=== PATIENT | female | born 2000 | race Caucasian/White ===

== ENCOUNTER → 2021-11-21 07:54 | Outpatient (BNVA) | payer OTHER, MEDICAID, SELFPAY | PROVIDERS: PCP Family Medicine; Visit Provider Nurse Practitioner Women's Health | DX: N92.6 Irregular menstruation, unspecified (principal) | CPT/HCPCS: 81025; 84702 ==

== ENCOUNTER → 2021-11-25 11:54 | Outpatient (BNVA) | payer OTHER, MEDICAID, SELFPAY | PROVIDERS: PCP Family Medicine; Visit Provider Obstetrics & Gynecology | DX: O20.9 Hemorrhage in early pregnancy, unspecified (principal) | CPT/HCPCS: 84702; 86850; 86900 ==

== ENCOUNTER 2021-11-29 07:51 | Outpatient (CLI) | payer OTHER, BC, SELFPAY | END 2021-11-29 07:52 | disposition home or self-care (01) | PROVIDERS: PCP Family Medicine; Visit Provider Obstetrics & Gynecology | DX: O20.0 Threatened abortion (principal) | CPT/HCPCS: 36415; 84702 ==

== ENCOUNTER → 2021-12-17 10:38 | Outpatient (BNVA) | payer BC, MEDICAID, SELFPAY | PROVIDERS: PCP Family Medicine; Visit Provider Obstetrics & Gynecology | DX: O03.9 Complete or unspecified spontaneous abortion without complication (principal); Z12.4 Encounter for screening for malignant neoplasm of cervix | CPT/HCPCS: 84702; 88175 ==

== ENCOUNTER → 2022-05-28 10:15 | Outpatient (BNVA) | payer BC, MEDICAID, SELFPAY | PROVIDERS: PCP Family Medicine; Visit Provider Nurse Practitioner Women's Health | DX: N92.6 Irregular menstruation, unspecified (principal); O21.9 Vomiting of pregnancy, unspecified | CPT/HCPCS: 81025 ==

== ENCOUNTER → 2022-06-06 07:48 | Outpatient (BNVA) | payer BC, MEDICAID, SELFPAY | PROVIDERS: PCP Family Medicine; Visit Provider Obstetrics & Gynecology | DX: Z36.87 Encounter for antenatal screening for uncertain dates (principal) | CPT/HCPCS: 76817 ==

== ENCOUNTER → 2022-06-10 14:08 | Outpatient (BNVA) | payer BC, MEDICAID, SELFPAY | PROVIDERS: PCP Family Medicine; Visit Provider Obstetrics & Gynecology | DX: Z36.9 Encounter for antenatal screening, unspecified (principal) | CPT/HCPCS: 76817; 80307; 81000; 85027; 86592; 86762; 86803; 86850; 86900; 87086; 87340; 87806 ==

== ENCOUNTER → 2022-06-23 14:14 | Outpatient (BNVA) | payer BC, MEDICAID, SELFPAY | PROVIDERS: PCP Family Medicine; Visit Provider Obstetrics & Gynecology | DX: R39.9 Unspecified symptoms and signs involving the genitourinary system (principal) | CPT/HCPCS: 81000; 87086 ==

== ENCOUNTER 2022-07-08 10:13 | Outpatient (CLI) | payer BC, MEDICAID, SELFPAY ==
[2023-05-14 13:28] LABS: Miscellaneous Test See Scanned Lab Rpt
== END 2022-07-08 10:14 | disposition home or self-care (01) ==
LOC: LAB 10:17
PROVIDERS: PCP Family Medicine; Visit Provider Obstetrics & Gynecology
DX: Z34.90 Encounter for supervision of normal pregnancy, unspecified, unspecified trimester (principal)
CPT/HCPCS: 81000; 87491; 87591

== ENCOUNTER → 2022-09-09 09:38 | Outpatient (BNVA) | payer BC, MEDICAID, SELFPAY | PROVIDERS: PCP Family Medicine; Visit Provider Obstetrics & Gynecology | DX: Z34.90 Encounter for supervision of normal pregnancy, unspecified, unspecified trimester (principal) | CPT/HCPCS: 81000 ==

== ENCOUNTER → 2022-09-23 13:20 | Outpatient (BNVA) | payer BC, MEDICAID, SELFPAY | PROVIDERS: PCP Family Medicine; Visit Provider Nurse Practitioner Women's Health | DX: Z34.90 Encounter for supervision of normal pregnancy, unspecified, unspecified trimester (principal) | CPT/HCPCS: 81000 ==

== ENCOUNTER → 2022-09-29 10:41 | Outpatient (BNVA) | payer BC, MEDICAID, SELFPAY | PROVIDERS: PCP Family Medicine; Visit Provider Nurse Practitioner Women's Health | DX: Z34.90 Encounter for supervision of normal pregnancy, unspecified, unspecified trimester (principal) | CPT/HCPCS: 82950 ==

== ENCOUNTER → 2022-10-17 09:00 | Outpatient (BNVA) | payer BC, MEDICAID, SELFPAY | PROVIDERS: PCP Family Medicine; Visit Provider Obstetrics & Gynecology | DX: Z34.90 Encounter for supervision of normal pregnancy, unspecified, unspecified trimester (principal) | CPT/HCPCS: 81000; 85027 ==

== ENCOUNTER → 2022-10-31 09:48 | Outpatient (BNVA) | payer BC, MEDICAID, SELFPAY | PROVIDERS: PCP Family Medicine; Visit Provider Nurse Practitioner Women's Health | DX: Z34.90 Encounter for supervision of normal pregnancy, unspecified, unspecified trimester (principal) | CPT/HCPCS: 81000 ==

== ENCOUNTER → 2022-11-14 07:56 | Outpatient (BNVA) | payer BC, MEDICAID, SELFPAY | PROVIDERS: PCP Family Medicine; Visit Provider Obstetrics & Gynecology | DX: Z34.90 Encounter for supervision of normal pregnancy, unspecified, unspecified trimester (principal) | CPT/HCPCS: 81000 ==

== ENCOUNTER → 2022-11-21 10:06 | Outpatient (BNVA) | payer BC, MEDICAID, SELFPAY | PROVIDERS: PCP Family Medicine; Visit Provider Nurse Practitioner Women's Health | DX: Z34.90 Encounter for supervision of normal pregnancy, unspecified, unspecified trimester (principal); L65.9 Nonscarring hair loss, unspecified | CPT/HCPCS: 81000; 84443 ==

== ENCOUNTER 2022-11-26 15:15 | Outpatient (CLI) | payer BC, MEDICAID, SELFPAY ==
[2022-11-26 16:56] LABS: Ferritin 16 ng/mL (15-150); Magnesium 1.6 mg/dL (1.7-2.3)
[2022-12-01 14:34] LABS: Vit D 1,25 (Oh)2, Total 170 pg/mL (18-72); Vit D2 1,25 (Oh)2 <8 pg/mL; Vit D3 1,25 (Oh)2 170 pg/mL
[2022-12-03 16:44] LABS: Zinc Level, Serum or Plasma 56 mcg/dL (60-130)
== END 2022-11-26 15:16 | disposition home or self-care (01) ==
LOC: LAB 15:18
PROVIDERS: PCP Family Medicine; Visit Provider Nurse Practitioner Family
DX: L65.0 Telogen effluvium (principal)
CPT/HCPCS: 36415; 82652; 82728; 83735; 84630

== ENCOUNTER → 2022-12-08 14:29 | Outpatient (BNVA) | payer BC, MEDICAID, SELFPAY | PROVIDERS: PCP Family Medicine; Visit Provider Obstetrics & Gynecology | DX: Z34.90 Encounter for supervision of normal pregnancy, unspecified, unspecified trimester (principal) | CPT/HCPCS: 81000; 87081 ==

== ENCOUNTER → 2022-12-15 10:13 | Outpatient (BNVA) | payer BC, MEDICAID, SELFPAY | PROVIDERS: PCP Family Medicine; Visit Provider Obstetrics & Gynecology | DX: Z34.90 Encounter for supervision of normal pregnancy, unspecified, unspecified trimester (principal) | CPT/HCPCS: 81000; 87086 ==

== ENCOUNTER → 2022-12-22 11:20 | Outpatient (BNVA) | payer BC, MEDICAID, SELFPAY | PROVIDERS: PCP Family Medicine; Visit Provider Obstetrics & Gynecology | DX: Z34.90 Encounter for supervision of normal pregnancy, unspecified, unspecified trimester (principal) | CPT/HCPCS: 81000 ==

== ENCOUNTER 2022-12-28 21:42 | Emergency (ER) | payer BC, MEDICAID, SELFPAY ==
[2022-12-28 21:48] VITALS: BP 132/89; PULSE 57; RESP 16; TEMP 36.8; O2SAT 97
--- NOTE | 2022-12-28 21:58 | W.ED.WOUNDLC ---
HPI - Wound/Laceration General: Chief Complaint: Wound/Laceration Stated Complaint: left finger lac Time Seen by Provider: 12/28/22 21:56 History of Present Illness: 22-year-old female comes in today with laceration to the left dorsal hand. Patient reports tetanus is up-to-date. Patient reports about a hour prior to arrival to the ER she was opening a box with a knife when it slipped cutting her to the right dorsal hand between the thumb and index finger. Review of Systems General: Reports: 10 or more systems reviewed and unremarkable except in HPI and below Resp: Denies: dyspnea Musc: Reports: extremity pain Skin/Breast: Reports: new lesions PFSH ED PFSH: Medical History No pertinent past medical history Denies diabetes, asthma, hypertension, seizures, DVT/PE PCP: Dr. Bowden Surgical History No pertinent past surgical history Family History Denies family history of Colon cancer Ovarian cancer Diabetes Heart disease Hypercholesteremia Breast cancer Hypertension Uterine cancer Thyroid disease Stroke Physical Exam Const: COMMON NORMALS: alert HENMT: COMMON NORMALS: normocephalic HEAD & SCALP: normocephalic Neck/C-Spine: COMMON NORMALS: full ROM Resp: COMMON NORMALS: normal respiratory effort Cardio: COMMON NORMALS: regular rate RATE: regular rate Extremity: LEFT UPPER EXTREMITY: Yes hand & digits (2 cm laceration dorsal hand) Left hand and digits: Yes inspection, Yes palpation, Yes ROM, Yes neurovascular exam and Yes tendon exam EXTREMITY IMAGE (FRONT): 1. 2 cm linear laceration Neuro: SENSORIUM/ORIENTATION: Yes alert Skin: TRAUMA: laceration (Left dorsal hand) linear Procedures Laceration Laceration 1: Site: hand Side (If applicable): left Size (cm): 2 Description: linear Depth: simple, single layer Pre-repair: wound explored and irrigated extensively Skin layer closed with: other (Skin adhesive) Course Vital Signs: Vital signs: Vital Signs Temperature 98.3 F 12/28/22 21:48 Pulse Rate 57 L 12/28/22 21:48 Respiratory Rate 16 12/28/22 21:48 Blood Pressure 132/89 12/28/22 21:48 Pulse Oximetry 97 12/28/22 21:48 Oxygen Delivery Me thod Room Air 12/28/22 21:48 MDM - Wound/Laceration Medical Decision Making 22-year-old female comes in today for injury to the left dorsal hand. On exam patient has a 2 cm linear laceration to the left dorsal hand. Wound is well approximated. Patient has normal tendon function and movement of the hand. Differential diagnosis includes not limited to fracture, foreign body, laceration. On exam there is noted no fracture, tendon injury, or foreign body to the wound. Wound was cleaned and approximated and secured with skin adhesive. Patient tolerated well. Dressing was applied postprocedure for protection of the wound. Patient reported understanding of care plan and need for follow-up or return to the ER. Discharge Plan Discharge Patient Disposition: Home Clinical Impression: Laceration of hand, left Qualifiers: Encounter type: initial encounter Foreign body presence: without foreign body Qualified Code(s): S61.412A - Laceration without foreign body of left hand, initial encounter Condition: Stable Prescriptions: No Action ketoconazole 2 % shampoo 1 applic topical ONCE Qty: 120 6RF Rx Instructions: Lather into scalp 2-3 times weekly. Allow to sit on scalp 5 minutes before rinsing clobetasol 0.05 % solution 1 applic topical BID 14 Days Qty: 50 3RF Rx Instructions: Apply a few drops to itchy areas on scalp as needed propranolol 20 mg tablet 20 mg PO BID Qty: 60 1RF prenat.vits,christopher,[id number]-ajqtz Tablet 1 tab PO DAILY Discharge Orders: Discharge ED (Routine); Ordered 12/28/22 Ordered By: Darrin Gloria Referrals: Skip Bowden MD [Primary Care Provider] - Discharge Diet: Usual diet Patient Instructions: Skin Adhesive Care (ED) Activity Restrictions/Additional Instructions: Keep wound clean and dry. Is very important keep the wound as dry as possible for the first 48 hours. This decreases chance of infection and improved healing. After that he can wash gently with mild soap and water. Do not apply ointment to the skin adhesive. Monitor site for signs of infection such as redness, fever, increasing pain. Follow-up with primary care as needed. Return to ED for new concerns. Coding Level of Care Code ED Implementation Advisor for Jose Cartagena
== END 2022-12-28 22:18 | disposition home or self-care (01) ==
PROVIDERS: Emergency Provider Nurse Practitioner Family; PCP Family Medicine
DX: S61.412A Laceration without foreign body of left hand, initial encounter (principal); W26.0XXA Contact with knife, initial encounter
CPT/HCPCS: 12001; 99282

== ENCOUNTER → 2022-12-29 08:22 | Outpatient (BNVA) | payer BC, MEDICAID, SELFPAY | PROVIDERS: PCP Family Medicine; Visit Provider Obstetrics & Gynecology | DX: Z34.90 Encounter for supervision of normal pregnancy, unspecified, unspecified trimester (principal) | CPT/HCPCS: 81000; 87086 ==

== ENCOUNTER → 2023-01-05 12:35 | Outpatient (BNVA) | payer BC, MEDICAID, SELFPAY | PROVIDERS: PCP Family Medicine; Visit Provider Obstetrics & Gynecology | DX: O48.0 Post-term pregnancy (principal) | CPT/HCPCS: 76819; 81000 ==

== ENCOUNTER 2023-01-06 19:07 | Inpatient (IN) | payer BC, MEDICAID, SELFPAY ==
[2023-01-06] VITALS (12 sets, daily range): BP systolic 101–123; BP diastolic 61–84; PULSE 53–68; RESP 16–18; TEMP 36.6; BMI 36.9
[2023-01-06 18:11] LABS: Basophils % 0.4 %; Eosinophils # 0.1 10^3/uL (0.0-0.8); Eosinophils % 0.5 %; Hematocrit 40.6 % (37.0-47.0); Hemoglobin 13.1 g/dL (11.5-15.3); Lymphocytes # 1.9 10^3/uL (0.8-4.8); Lymphocytes % 18.6 %; Mean Corpuscular HGB Conc 32.3 g/dL (30.0-36.0); Mean Corpuscular Hemoglobin 26.9 pg (28.0-34.0); Mean Corpuscular Volume 83.4 fl (81-99); Mean Platelet Volume 13.3 fL (7.4-10.4); Monocytes # 0.8 10^3/uL (0.2-0.9); Monocytes % 7.8 %; Neutrophils # 7.23 10^3/uL (1.8-7.7); Nucleated Red Blood Cells % 0 %; Platelet Count 225 10^3/cmm (130-400); Red Blood Count 4.87 10^6/uL (4.1-5.3)
[2023-01-06] MEDS: miSOPROStol 100 mcg tablet 25 MCG VAGINAL ×2 (18:18→21:55)
[2023-01-07] VITALS (111 sets, daily range): BP systolic 76–141; BP diastolic 50–88; PULSE 52–164; RESP 16–18; TEMP 36.2–36.8; O2SAT 92–99
[2023-01-07] MEDS: miSOPROStol 100 mcg tablet 25 MCG VAGINAL (01:56)
--- NOTE | 2023-01-07 07:00 | PM.OPHPUD ---
Labor & Delivery H&P Update Date of Procedure: January 07, 2023 Date H&P Performed: 01/05/23 H&P update information: I have reviewed H&P completed within last 30 days, I have examined patient prior to procedure and No changes to prior documentation Admission Diagnosis:
[2023-01-07] MEDS: dextrose 5%-lactated ringers 1,000 ML 125 ML IV (10:03)
[2023-01-07] MEDS: fentaNYL 50 mcg/mL INJ 2mL IVP ×2 (10:12→15:09)
[2023-01-07] MEDS: lactated ringers 1,000 ML 999 ML IV ×3 (16:06→20:19)
--- NOTE | 2023-01-07 17:51 | PC.NURSE ---
Pitocin was decreased to half at 1610 due to contraction pattern. Pitocin as of 1751 has not been advanced in dosage from 5 due to not being able to trace maternal contractions.
--- NOTE | 2023-01-07 19:07 | ANES.PREANE2 ---
Pre-Anesthetic Assessment Height/Weight: Height 1.68 m Weight 103.873 kg Temp Pulse Resp BP O2 Del Method 98.2 F 59 L 16 112/71 Room Air 01/07/23 12:14 01/07/23 16:34 01/07/23 17:00 01/07/23 16:34 01/06/23 17:07 Preop Diagnosis: Labor pain MURALI Was Beta Alejandro taken within 24 hours: N/A Was Clonidine taken within 24 hours: N/A Social No alcohol and No tobacco Exam alert, oriented x 3, clear to auscultation bilaterally and regular rate & rhythm Airway Submandibular: within normal limits Cervical ROM: within normal limits Mallampati: Class II Dentition: full History/ROS No significant history except as noted and No significant complaints Pulmonary None reported CV/HEM None reported None reported Hepatic None reported GI None reported Metabolic None reported Musc/skel None reported Neuropsych None reported Anesthetic Plan ASA status: 2 Anesthesia: Regional (specify below) Other: MURALI Risk of > 500 ml blood loss (7ml/kg in children): No Medications/Allergies Home Medications Medication Instructions Recorded Confirmed Last Taken Type clobetasol 0.05 % scalp solution 1 applic topical BID 2 weeks #50 mL 05/06/22 01/05/23 Unknown Rx ketoconazole 2 % shampoo 1 applic topical ONCE #120 mL 05/06/22 01/05/23 Unknown Rx prenat.vits,christopher,ybk-[id number]-sogtm 1 tab PO DAILY 05/28/22 01/05/23 Unknown History propranolol 20 mg tablet 20 mg PO BID #60 tabs 10/31/22 01/05/23 Unknown Rx breast pump #1 ea 01/05/23 01/05/23 Unknown Rx Allergies Allergy/AdvReac Type Severity Reaction Status Date / Time No Known Allergies Allergy Verified 01/05/23 13:50 Current Medications Generic Name Dose Route Start Last Admin Trade Name Freq PRN Reason Stop Dose Admin Fentanyl 25 - 100 mcg 01/06/23 17:58 01/07/23 15:09 Fentanyl 50 Mcg/Ml Inj 2ml IVP 25 mcg Q1H PRN Administration SEVERE PAIN Dextrose/Lactated Ringer's 1,000 mls @ 125 mls/hr 01/06/23 17:58 01/07/23 10:03 Dextrose 5%-Lactated Ringers IV 125 mls/hr .Q8H PRN Administration per label comments Lactated Ringer's 1,000 mls @ 999 mls/hr 01/06/23 19:32 01/07/23 18:58 Lactated Ringers IV 999 mls/hr .Q1H1M PRN Administration Per L&D Rescitation Protocol Oxytocin 30 unit/ Sodium 503 mls @ 1 mls/hr 01/07/23 09:30 01/07/23 16:10 Chloride IV 5 mls/hr .Q24H AYE 5 mls/hr Titration Protocol PFS Anesthesia Medical History No pertinent past medical history Denies diabetes, asthma, hypertension, seizures, DVT/PE PCP: Dr. Bowden Surgical History No pertinent past surgical history Family History Denies family history of Colon cancer Ovarian cancer Diabetes Heart disease Hypercholesteremia Breast cancer Hypertension Uterine cancer Thyroid disease Stroke Female Reproductive History : 2 Data Anesthesia 01/06/23 17:40 Short CBC 01/06/23 Range/Units 17:40 WBC 10.0 (4.0-10.0) 10^3/uL Hgb 13.1 (11.5-15.3) g/dL Hct 40.6 (37.0-47.0) % MCV 83.4 (81-99) fl Plt Count 225 (130-400) 10^3/cmm Neut % (Auto) 72.0 % Neut # (Auto) 7.23 (1.8-7.7) 10^3/uL Cardiac Studies: No Data to Display
--- NOTE | 2023-01-07 19:35 | P.ANES_ITS ---
Anesthesia Procedures Procedure/Date: 01/07/23 Epidural: Time Out Performed: Yes Consents Signed: Procedure Consent Consent: requested by attending/covering physician and from patient Lumbar Level: L2-L3 Epidural position: sitting Epidural procedure: sterile prep of area, 1% lidocaine to numb the area, 18 g needle, neg for paresthesia, test d ose given, 1.5% xylocaine 1:200k epi (5cc neg), 0.2% Ropivacaine bolus ml (4cc with fentanyl 100mcg), placed PCEA, no systemic response, sterile dressing applied, L.U.D. no apparent complications and 0.2% Ropiavacaine @ mls/hr (13cc/hour) Additional Comments: TITA at 9cm. Placed 2cm into space. Pt tolerated well
[2023-01-07] MEDS: ePHEDrine 50 mg/mL Inj 10 MG IVP ×2 (22:00→22:12)
[2023-01-07] MEDS: ondansetron 2 mg/ML SDV 2 mL 4 MG IVP (22:02)
[2023-01-08] VITALS (83 sets, daily range): BP systolic 89–131; BP diastolic 51–82; PULSE 51–103; RESP 16–18; TEMP 36.6–36.9; O2SAT 96
--- NOTE | 2023-01-08 01:24 | PM.DELIVERY ---
Delivery Note: Date of delivery: January 08, 2023 Pre-delivery diagnoses: term , labor induction Post-delivery diagnoses: same, vaginal delivery Procedure: labor induction vaginal delivery Delivering Physician: Naveen Reyes MD Estimated blood loss (mL): 300 Findings: vigorous infant normal placenta and cord cord gases and blood obtained second-degee perineal laceration repaired Delivery: vaginal delivery, no complications Post-Delivery Status: normal History History History 2 Term 0 0 Miscarriages/Ectopic 1 Living Children 0 A&P Assessment and plan (1) Vaginal delivery: Coding Level of Care Code Acute Code for Chg Fwd Diagnoses Vaginal delivery O80 Time Spent (min) 60
--- NOTE | 2023-01-08 01:53 | PC.NURSE ---
This nurse tried to edit titration for Pitocin but it will not allow me to. Patient is on moderate dose pitocin increasing 1 ml every 15 minute at 0115 patients pitocin was increased from 4ml to 5ml then at 0130 increased to 6ml then at 0145 increased to 7ml.
[2023-01-08] MEDS: dextrose 5%-lactated ringers 1,000 ML 125 ML IV ×2 (04:29→13:30)
--- NOTE | 2023-01-08 08:12 | PC.NURSE ---
Pt c/o lots of pain with catheter even after pushing bulb back. Discussed options, pt opted to remove esteves and do straight cath every 2-4 hours for bladder emptying. Catheter removed.
--- NOTE | 2023-01-08 11:08 | PM.OBGYPN ---
RELIGIOUS EDUCATION COORDINATOR Subjective Subjective: Interval history: patient comfortable with epidural heart tracing by external monitor: good [id number] variability pitocin at 20 mU Cx: 4 cm / -2 AROM - small amount of blood fluid IUPC placed Labor: Station: -3 Amniotic Membrane Status: Bulging Monitor Mode: Palpation Contraction Pattern: Irregular Status: Category I Vitals/I&O/Wt Last Vital Signs Temp 98.4 F 01/08/23 10:56 Pulse 103 H 01/08/23 10:48 Resp 16 01/08/23 08:15 BP 103/67 01/08/23 10:48 Pulse Ox 98 01/07/23 19:29 O2 Del Method Room Air 01/06/23 17:07 01/07/23 01/08/23 01/08/23 22:59 06:59 14:59 Intake Total 4077.900 / 4095.900 100.10 / 4196.000 Output Total 100 / 100 350 / 450 200 / 200 Balance 3977.900 / 3995.900 -249.90 / 3746.000 -200 / -200 Weight last 48 hrs Weight 229 lb Physical Exam Urinary Catheter Management: [place]: Cath Placed During This Visit: yes, but has since been removed by the nurse Reason for Continuing Indwelling Catheter: Decision to DC Catheter Urinary Catheter Date of Insertion: 01/07/23 Urinary Catheter Time of Insertion: 20:10 Date Urinary Catheter Removed: 01/08/23 Time Urinary Catheter Discontinued: 08:00 Data 01/06/23 17:40 Attestations Medical Necessity Statement*: patient at 40 w 6 d, undergoing labor induction Coding Level of Care Code Acute Code for Chg Fwd Diagnoses Time Spent (min) 15
[2023-01-08] MEDS: ondansetron 2 mg/ML SDV 2 mL 4 MG IVP ×2 (11:26→15:36)
[2023-01-08] MEDS: lanolin oint 7 gm 1 APPLIC TOPICAL (19:21)
[2023-01-08] MEDS: benzocaine-menthol 78 gm Canister 1 SPRAY TOPICAL (19:21)
[2023-01-08] MEDS: HYDROcodone-acetaminophen 5-325 mg Tablet PO (19:21)
[2023-01-08] MEDS: ibuprofen 800 mg tablet PO (21:11)
--- NOTE | 2023-01-09 01:27 | P.DS_ITS ---
Discharge Providers REAL ESTATE INVESTOR Date of Admission: 01/06/23 19:07 Date of Discharge: 01/09/23 Attending Provider at Admission: Greg Dee MD Attending Provider at Discharge: Greg Dee MD Primary Care Provider: Skip Bowden MD Diagnoses at Discharge Discharge Diagnosis (1) Vaginal delivery: Status: Acute Reason for Visit Reason for Visit: elective induction Hospital Course Hospital Course patient underwent labor induction s/p vaginal delivery normal course Information Peripartum Data: Delivery Method: Vaginal Laceration description: Perineal - 2nd Degree complications: none Physical Exam Urinary Catheter Management: [place]: Cath Placed During This Visit: yes, but has since been removed by the nurse Reason for Continuing Indwelling Catheter: Decision to DC Catheter Urinary Catheter Date of Insertion: 01/07/23 Urinary Catheter Time of Insertion: 20:10 Date Urinary Catheter Removed: 01/08/23 Time Urinary Catheter Discontinued: 08:00 History History History 2 Term 0 0 Miscarriages/Ectopic 1 Living Children 0 Discharge Data Studies Completed and Pending Laboratory Results WBC 18.4 10^3/uL (4.0-10.0) H 01/09/23 05:35 RBC 3.72 10^6/uL (4.1-5.3) L 01/09/23 05:35 Hgb 10.1 g/dL (11.5-15.3) L 01/09/23 05:35 Hct 31.6 % (37.0-47.0) L 01/09/23 05:35 MCV 84.9 fl (81-99) 01/09/23 05:35 MCH 27.2 pg (28.0-34.0) L 01/09/23 05:35 MCHC 32.0 g/dL (30.0-36.0) 01/09/23 05:35 RDW 14.1 % (12.1-15.1) 01/09/23 05:35 Plt Count 168 10^3/cmm (130-400) 01/09/23 05:35 MPV 12.9 fL (7.4-10.4) H 01/09/23 05:35 Neut % (Auto) 72.0 % 01/06/23 17:40 Lymph % (Auto) 18.6 % 01/06/23 17:40 [place] % (Auto) 7.8 % 01/06/23 17:40 Eos % (Auto) 0.5 % 01/06/23 17:40 Baso % (Auto) 0.4 % 01/06/23 17:40 Neut # (Auto) 7.23 10^3/uL (1.8-7.7) 01/06/23 17:40 Lymph # (Auto) 1.9 10^3/uL (0.8-4.8) 01/06/23 17:40 [place] # (Auto) 0.8 10^3/uL (0.2-0.9) 01/06/23 17:40 Eos # (Auto) 0.1 10^3/uL (0.0-0.8) 01/06/23 17:40 Baso # (Auto) 0.0 10^3/uL (0.0-0.1) 01/06/23 17:40 Nucleated RBC % (auto) 0 % 01/06/23 17:40 Nucleated RBCs # 0.0 /100WBC 01/06/23 17:40 Procedures Performed labor induction vaginal delivery Vitals Last Vital Signs Temp 98.1 F 01/09/23 20:14 Pulse 98 01/09/23 20:14 Resp 14 01/09/23 20:14 BP 124/81 01/09/23 20:14 Pulse Ox 98 01/09/23 20:14 O2 Del Method Room Air 01/09/23 11:00 Discharge Plan Discharge Patient Disposition: Home Condition: Stable Prescriptions: Continued ketoconazole 2 % shampoo 1 applic topical ONCE Qty: 120 6RF Rx Instructions: Lather into scalp 2-3 times weekly. Allow to sit on scalp 5 minutes before rinsing clobetasol 0.05 % solution 1 applic topical BID 14 Days Qty: 50 3RF Rx Instructions: Apply a few drops to itchy areas on scalp as needed propranolol 20 mg tablet 20 mg PO BID Qty: 60 1RF prenat.vits,christopher,[id number] Tablet 1 tab PO DAILY No Action (DME) breast pump Device See Rx Instructions .Route Qty: 1 0RF Rx Instructions: As directed Discharge Orders: Discharge Order (Routine); Ordered 01/09/23 Ordered By: Naveen Reyes Discharge Diet: Usual diet Discharge Activity: Increase activity as tolerated Patient Instructions: Depression (DC), Bleeding (DC), Preeclampsia and Eclampsia After Delivery (GEN), Hemorrhage (DC), OB Discharge Report, OB Feeding Plan, OB Care at Home, Opioid Safety, OB Home Care, OB Proud Parent Packet, OB Vaginal Deliveries - [facility] Activity Restrictions/Additional Instructions: Please call [facility] on Thursday (01/12/23) to schedule your appointment. Discharge Attestations REAL ESTATE INVESTOR Time Spent in Discharge Care*: less than 30 min Status at Discharge: Overall status at discharge: patient is back to baseline Coding Level of Care Code Acute Code for Chg Fwd Diagnoses Vaginal delivery O80 Time Spent (min) 20
[2023-01-09 05:00] VITALS: BP 125/77; PULSE 76; RESP 18; TEMP 36.6; O2SAT 100
[2023-01-09] MEDS: HYDROcodone-acetaminophen 5-325 mg Tablet PO (05:08)
[2023-01-09 05:58] LABS: Hematocrit 31.6 % (37.0-47.0); Hemoglobin 10.1 g/dL (11.5-15.3); Mean Corpuscular Hemoglobin 27.2 pg (28.0-34.0); Mean Corpuscular Volume 84.9 fl (81-99); Mean Platelet Volume 12.9 fL (7.4-10.4); Platelet Count 168 10^3/cmm (130-400); Red Blood Count 3.72 10^6/uL (4.1-5.3); Red Cell Distribution Width 14.1 % (12.1-15.1); White Blood Count 18.4 10^3/uL (4.0-10.0)
[2023-01-09] MEDS: docusate sodium 100 mg Capsule PO (09:41)
[2023-01-09] MEDS: prenatal vitamin Capsule 1 CAP PO (09:42)
[2023-01-09] MEDS: ibuprofen 800 mg tablet PO (09:42)
[2023-01-09 11:00] VITALS: BP 119/80; PULSE 101; RESP 16; O2SAT 97
--- NOTE | 2023-01-09 18:52 | ANE.PACU2 ---
Inpatient post-anesthesia follow up: Airway intact: Yes Vital signs: Temperature 97.8 F Pulse Rate 101 Respiratory Rate 16 Blood Pressure 119/80 Pulse Oximetry 97 Oxygen Delivery Me thod Room Air Oxygen Flow Rate Fraction of Inspir ed Oxygen Hydration adequate: Yes Nausea and vomiting: No Pain level: 2 Mental status: Baseline
[2023-01-09] MEDS: lanolin oint 7 gm 1 APPLIC TOPICAL (19:57)
[2023-01-09] MEDS: benzocaine-menthol 78 gm Canister 1 SPRAY TOPICAL (19:58)
[2023-01-09 20:14] VITALS: BP 124/81; PULSE 98; RESP 14; TEMP 36.7; O2SAT 98
== END 2023-01-09 20:12 | disposition home or self-care (01) | DRG 807 ==
LOC: OBGYN 01-07 08:13 → OPOB 01-14 08:45
PROVIDERS: Obstetrics & Gynecology; Admitting Provider Obstetrics & Gynecology; PCP Family Medicine; Visit Provider Obstetrics & Gynecology
DX: O70.1 Second degree perineal laceration during delivery (principal); Z37.0 Single live birth; Z3A.40 40 weeks gestation of pregnancy
CPT/HCPCS: 36415; 51702; 59025; 59409; 85025; 85027; 99211; J2405; J2795; J3010; J7040; J7120; J7121

== ENCOUNTER 2023-04-21 14:40 | Outpatient (CLI) | payer BC, MEDICAID, SELFPAY ==
[2023-04-21 15:59] LABS: Free T4 Free Thyroxine 1.34 ng/dL (0.82-1.77); Thyroid Stimulating Hormone 0.78 uIU/mL (0.27-4.20)
[2023-04-21 19:45] LABS: Ferritin 19 ng/mL (15-150); Iron 96 ug/dL (37-145); Percent Saturation 27.7 % (20-50); Total Iron Binding Capacity 346 mcg/dl; Unsaturated Iron Binding 250 ug/dL (112-347)
[2023-04-21 19:50] LABS: Folate Level > 20.0 ng/mL (4.8-37.3)
[2023-04-21 19:59] LABS: 25 Hydroxy Vitamin D 22 ng/mL (30-100)
[2023-04-23 20:04] LABS: Zinc Level, Serum or Plasma 66 mcg/dL (60-130)
[2023-04-25 11:40] LABS: Vit D 1,25 (Oh)2, Total 57 pg/mL (18-72); Vit D2 1,25 (Oh)2 <8 pg/mL; Vit D3 1,25 (Oh)2 57 pg/mL
== END 2023-04-21 14:41 | disposition home or self-care (01) ==
PROVIDERS: PCP Family Medicine; Visit Provider Nurse Practitioner Family
DX: D22.5 Melanocytic nevi of trunk (principal); D18.01 Hemangioma of skin and subcutaneous tissue; L21.8 Other seborrheic dermatitis
CPT/HCPCS: 36415; 82306; 82652; 82728; 82746; 83540; 83550; 84439; 84443; 84630

== ENCOUNTER 2023-08-20 15:16 | Outpatient (CLI) | payer BC, MEDICAID, SELFPAY ==
[2023-08-20 16:23] LABS: Basophils # 0.1 10^3/uL (0.0-0.1); Basophils % 0.7 %; Eosinophils # 0.1 10^3/uL (0.0-0.8); Eosinophils % 1.3 %; Hematocrit 42.4 % (36-47); Lymphocytes # 2.5 10^3/uL (0.8-4.8); Mean Corpuscular HGB Conc 31.8 g/dL (30-55); Mean Corpuscular Hemoglobin 27.2 pg (27-33); Mean Corpuscular Volume 85.5 fl (85-98); Mean Platelet Volume 11.2 fL (7.4-10.4); Monocytes # 0.5 10^3/uL (0.2-0.9); Monocytes % 6.6 %; Neutrophils # 4.41 10^3/uL (1.8-7.7); Neutrophils % 58.3 %; Nucleated Red Blood Cells % 0 %; Platelet Count 290 10^3/cmm (157-399); Red Blood Count 4.96 10^6/uL (3.85-5.65); Red Cell Distribution Width 13.3 % (12.1-15.1); White Blood Count 7.57 10^3/uL (3.29-11.43)
[2023-08-20 16:55] LABS: HCG, Serum Qual Negative (Negative)
[2023-08-20 17:03] LABS: 25 Hydroxy Vitamin D 29 ng/mL (30-100); Ferritin 85 ng/mL (15-150); Iron 81 ug/dL (37-145); Percent Saturation 29.8 % (20-50); Total Iron Binding Capacity 271 mcg/dl; Unsaturated Iron Binding 190 ug/dL (112-347)
[2023-08-20 21:27] LABS: Testosterone Total 22.6 ng/dL (8.4-48.1)
[2023-08-23 13:20] LABS: Vit D 1,25 (Oh)2, Total 57 pg/mL (18-72); Vit D2 1,25 (Oh)2 <8 pg/mL; Vit D3 1,25 (Oh)2 57 pg/mL
[2023-08-23 20:29] LABS: Testosterone, Free 2.9 pg/mL (0.2-5.0)
== END 2023-08-20 15:17 | disposition home or self-care (01) ==
LOC: LAB 15:18
PROVIDERS: PCP Family Medicine; Visit Provider Nurse Practitioner Family
DX: L65.0 Telogen effluvium (principal); N92.6 Irregular menstruation, unspecified
CPT/HCPCS: 36415; 82306; 82652; 82728; 83540; 83550; 84402; 84403; 84703; 85025

== ENCOUNTER → 2023-09-17 14:20 | Outpatient (BNVA) | payer BC, MEDICAID, SELFPAY | PROVIDERS: PCP Family Medicine; Visit Provider Obstetrics & Gynecology | DX: N91.5 Oligomenorrhea, unspecified (principal); F41.9 Anxiety disorder, unspecified; F32.A Depression, unspecified; N91.4 Secondary oligomenorrhea | CPT/HCPCS: 83001; 84146; 84443; 84702 ==

== ENCOUNTER → 2023-11-04 15:27 | Outpatient (BNVA) | payer BC, MEDICAID, SELFPAY | PROVIDERS: PCP Family Medicine; Visit Provider Obstetrics & Gynecology | DX: N91.5 Oligomenorrhea, unspecified (principal) | CPT/HCPCS: 76830 ==